=== PATIENT | male | born 2000 | race Caucasian/White ===

== ENCOUNTER 2023-06-10 21:06 | Emergency (ER) | payer BC ==
[2023-06-10 22:28] LABS: CORONAVIRUS COVID-19 NAA NEGATIVE (NEGATIVE); INFLUENZA A NAA NEGATIVE (NEGATIVE); INFLUENZA B NAA NEGATIVE (NEGATIVE)
== END 2023-06-10 22:55 | disposition home or self-care (01) ==
LOC: FB.ED 21:06
DX: R07.0 Pain in throat (principal); Z88.0 Allergy status to penicillin; Z88.1 Allergy status to other antibiotic agents; Z20.822 Contact with and (suspected) exposure to COVID-19
CPT/HCPCS: 0240U; 87651-QW; 99282; 99283